=== PATIENT | male | born 1990 | race African-American/Black ===

== ENCOUNTER 2022-04-19 06:19 | Emergency (ER) | payer SELFPAY ==
[2022-04-19] MEDS ORDERED: Bupivacaine PF 0.5% 30 ML VIAL ONE ×2 (07:59→08:07)
[2022-04-19] MEDS ORDERED: Ketorolac Tromethamine 30 MG/ML VIAL ONE (08:06)
== END 2022-04-19 08:20 | disposition home or self-care (01) ==
LOC: CSHERS 06:19
DX: K02.9 Dental caries, unspecified (principal)
CPT/HCPCS: 64400; 96372; J1885; S0020

== ENCOUNTER 2022-04-20 17:12 | Emergency (ER) | payer SELFPAY ==
[~2022-04-20 17:12] MED LIST: Iopamidol 300 61% 100 ML VIAL FS ONE
[2022-04-20] MEDS ORDERED: Ketorolac Tromethamine 30 MG/ML VIAL ONE (18:13)
[2022-04-20 18:38] LABS: #Monocytes 1.4 10x3/uL (0.0-1.1); %Basophils 0.2 % (0.0-2.0); %Eosinophils 0.1 % (0.0-6.0); %Lymphocytes 13.6 % (18.0-47.0); %Monocytes 11.3 % (0.0-10.0); %Neutrophils 74.5 % (40.0-75.0); Hemoglobin 16.2 g/dL (13.5-17.5); Mean Corpuscular HGB CONC 36.8 g/dL (32.0-36.0); Mean Corpuscular Hemoglobin 33.4 pg (27.0-33.0); Mean Corpuscular Volume 90.7 fl (81.2-95.1); Mean Platelet Volume 9.3 fl (7.4-10.4); Platelet Count 274 10x3/uL (150-450); RBC Distribution Width 12.3 % (11.5-14.5); Red Blood Cell (RBC) Count 4.85 10x6/uL (4.32-5.72); White Blood Cell (WBC) Count 12.1 10x3/uL (3.5-10.5)
[2022-04-20 18:55] LABS: ALT (SGPT) 63 U/L (8-55); AST (SGOT) 34 U/L (5-34); Albumin 4.9 g/dL (3.5-5.0); Alkaline Phosphatase 62 U/L (40-110); Anion Gap 16 mmol/L (10-20); BUN (Urea Nitrogen) 10 mg/dL (8.9-20.6); Bilirubin, Total 1.2 mg/dL (0.2-1.2); Calc. Creatinine Clearance 0 mL/min (70-130); Calcium 10.1 mg/dL (7.8-10.44); Carbon Dioxide 26 mmol/L (22-29); Chloride 102 mmol/L (98-107); Estimated GFR 71; Glucose 103 mg/dL (70-105); Potassium 3.9 mmol/L (3.5-5.1); Protein, Total 8.9 g/dL (6.0-8.3); Sodium 140 mmol/L (136-145)
[2022-04-20] MEDS ORDERED: Dexamethasone 4 MG TAB ONE (20:05)
== END 2022-04-20 20:06 | disposition home or self-care (01) ==
LOC: CSHERS 17:12
DX: L03.211 Cellulitis of face (principal)
CPT/HCPCS: 70491; 80053; 85025; 96374; J1885; J8540; Q9967